=== PATIENT | female | born 2000 | race American Indian/Alaskan Native ===

== ENCOUNTER 2022-01-18 03:59 | Emergency (ER) | payer SELFPAY ==
[2022-01-18 05:03] VITALS: BP 118/84
[2022-01-18 05:23] LABS: Hematocrit 47.4 % (30.3-42.9); Hemoglobin 15.5 gm/dl (10.1-14.3); Mean Corpuscular HGB Conc 33 % (30-34); Mean Corpuscular Volume 89 fl (79-97); Platelet Count 386 K/mm3 (140-440); Red Blood Count 5.34 M/mm3 (3.65-5.03); Red Cell Distribution Width 13.1 % (13.2-15.2)
[2022-01-18 05:26] LABS: Bilirubin,Urine NEG (Negative); Blood,Urine LG (Negative); Color,Urine Red (Yellow); Mucus,Urine 3+ /HPF; Urobilinogen,Urine < 2.0 mg/dL (<2.0)
[2022-01-18 05:27] LABS: RBC,Urine > 182.0 /HPF (0.0-6.0)
[2022-01-18 05:49] LABS: Alanine Aminotransferase 23 units/L (7-56); Albumin 5.7 g/dL (3.9-5); BUN/Creatinine Ratio 18; Blood Urea Nitrogen 18 mg/dL (7-17); Calcium 10.3 mg/dL (8.4-10.2); Hemolysis Index 15
[2022-01-18 06:12] LABS: Total Cells Counted 100
[2022-01-18 06:13] LABS: Basophils % (Manual) 0 % (0.0-1.8); Eosinophils % (Manual) 0 % (0.0-4.3)
[2022-01-18 06:14] LABS: Platelet Estimate Consistent w Auto; RBC Morphology Normal
== END 2022-01-18 09:30 | disposition left against medical advice (07) ==
LOC: ED 03:59
DX: N93.9 Abnormal uterine and vaginal bleeding, unspecified (principal); Z53.21 Procedure and treatment not carried out due to patient leaving prior to being seen by health care provider
CPT/HCPCS: 36415; 80053; 81001; 84703; 85007; 85025

== ENCOUNTER 2022-01-18 11:04 | Emergency (ER) | payer MEDICAID ==
[2022-01-18] MEDS ORDERED: ONDANSETRON 4 MG/2 ML INJ IV ONE (13:31)
[2022-01-18] MEDS ORDERED: MORPHINE 4 MG/1 ML INJ IV ONE (13:31)
[2022-01-18 13:55] LABS: Basophils # (Auto) 0.1 K/mm3 (0.0-0.1); Basophils % (Auto) 0.6 % (0.0-1.8); Hematocrit 47.6 % (30.3-42.9); Hemoglobin 15.7 gm/dl (10.1-14.3); Lymphocytes # (Auto) 1.9 K/mm3 (1.2-5.4); Lymphocytes % (Auto) 14.1 % (13.4-35.0); Mean Corpuscular HGB Conc 33 % (30-34); Mean Corpuscular Volume 87 fl (79-97); Monocytes # (Auto) 1.2 K/mm3 (0.0-0.8); Monocytes % (Auto) 9.1 % (0.0-7.3); Platelet Count 408 K/mm3 (140-440); Red Blood Count 5.46 M/mm3 (3.65-5.03); Red Cell Distribution Width 12.8 % (13.2-15.2)
[2022-01-18 14:31] LABS: Alanine Aminotransferase 21 units/L (7-56); Albumin 5.9 g/dL (3.9-5); BUN/Creatinine Ratio 17; Blood Urea Nitrogen 17 mg/dL (7-17); Calcium 10.4 mg/dL (8.4-10.2)
[2022-01-18 14:32] LABS: Hemolysis Index 8
[2022-01-18] MEDS ORDERED: SODIUM CHLORIDE 0.9% 1000 ML 1,000 ML IV ONE (16:10)
--- NOTE | 2022-01-18 17:05 | Cat Scan Report ---
CT ABDOMEN AND PELVIS WITH CONTRAST INDICATION / CLINICAL INFORMATION: pelvic pain and lower abd pain; with light vaginal bleeding; 9 day s late on menstrual cycle 100 ML OMNI 300. TECHNIQUE: Axial CT images were obtained through the abdomen and pelvis after 100 cc Omnipaque [address] scans at this location are performed using CT dose reduction for ALARA by means of automated exposure control. COMPARISON: None available. FINDINGS: LOWER CHEST: No acute abnormality. LIVER: No significant abnormality. GALLBLADDER: No significant abnormality. BILE DUCTS: No significant abnormality. PANCREAS: No significant abnormality. SPLEEN: No significant abnormality. ADRENALS: No significant abnormality. RIGHT KIDNEY / URETER: No significant abnormality. LEFT KIDNEY / URETER: No significant abnormality. STOMACH / SMALL BOWEL: No significant abnormality. COLON: No significant abnormality. APPENDIX: No significant abnormality. PERITONEUM: No free fluid. No free air. No fluid collection. LYMPH NODES: No significant adenopathy. AORTA / ARTERIES: No significant abnormality. IVC / VEINS: No significant abnormality. URINARY BLADDER: No significant abnormality. REPRODUCTIVE ORGANS: No significant abnormality. ADDITIONAL FINDINGS: None. SKELETAL SYSTEM: No significant abnormality. IMPRESSION: 1. No acute abnormality. There is no obstruction, inflammation, or free air. There are no abnormal fl uid collections. Signer Name: Ralf Olsen MD Signed: 01/18/2022 5:01 PM Workstation Name: [id number]
--- NOTE | 2022-01-18 18:36 | Emergency Department Report ---
ED Abdominal Pain HPI - General Chief Complaint: Abdominal Pain Stated Complaint: VOMMITING X3 DAYS POSS MISCARRIAGE Time Seen by Provider: 01/18/22 13:25 Source: patient Mode of arrival: Ambulatory Limitations: No Limitations - History of Present Illness Initial Comments: Patient presents with complaints of middle, upper abdominal pain, sharp/cramping, non radiating, 8/10, not worsened or relieved by anything. Endorses nausea, non bloody, non bilious vomiting. Last BM was today and diarrheal. Has had diarrhea x 1 day (2 bouts) without blood or mucus. Denies recent travel, eating out, known sick contacts. Endorses flatulence. Denies dysuria, frequency, urgency. Reports vaginal bleeding, denies vaginal discharge. Severity scale (0 -10): 10 - Related Data Previous Rx's Medication Instructions Recorded Last Taken Type Acetaminophen/Codeine [Tylenol 1 tab PO Q6H PRN 3 Days #12 tab 01/18/22 Unknown Rx /Codeine # 3 tab] Ondansetron [Zofran ODT TAB] 1 tab SL Q8HR PRN 3 Days #9 01/18/22 Unknown Rx tab.rapdis Allergies Allergy/AdvReac Type Severity Reaction Status Date / Time No Known Allergies Allergy Verified 01/18/22 04:48 ED Review of Systems ROS: Stated complaint: VOMMITING X3 DAYS POSS MISCARRIAGE Other details as noted in HPI Comment: All other systems reviewed and negative Constitutional: denies: chills, fever ED Past Medical Hx - Past Medical History Previous Medical History?: No - Surgical History Additional Surgical History: tonsillectomy - Social History Smoking Status: Never Smoker Substance Use Type: None - Medications Home Medications: Home Medications Medication Instructions Recorded Confirmed Last Taken Type Acetaminophen/Codeine [Tylenol 1 tab PO Q6H PRN 3 Days #12 tab 01/18/22 Unknown Rx /Codeine # 3 tab] Ondansetron [Zofran ODT TAB] 1 tab SL Q8HR PRN 3 Days #9 01/18/22 Unknown Rx tab.rapdis ED Physical Exam - General Limitations: No Limitations General appearance: alert, in no apparent distress - Head Head exam: Present: atraumatic, normocephalic - Eye Eye exam: Present: PERRL, EOMI - ENT ENT exam: Present: mucous membranes moist, other (airway patent) - Neck Neck exam: Present: other (supple; no JVD) - Cardiovascular Cardiovascular Exam: Present: regular rate. Absent: rubs, gallop - GI/Abdominal GI/Abdominal exam: Present: other (soft; non distended; mildly tender to palpation diffusely) - Extremities Exam Extremities exam: Present: full ROM. Absent: tenderness - Back Exam Back exam: Present: full ROM. Absent: CVA tenderness (R), CVA tenderness (L) - Neurological Exam Neurological exam: Present: alert, oriented X3, CN II-XII intact. Absent: motor sensory deficit - Skin Skin exam: Present: warm, normal color ED Course Vital Signs 01/18/22 01/18/22 01/18/22 11:28 17:10 17:14 Temperature 98.5 F 98.9 F Pulse Rate 66 83 Respiratory 16 20 Rate Blood Pressure 118/84 116/89 [Right] O2 Sat by Pulse 99 99 100 Oximetry 01/18/22 19:42 Temperature 99.0 F Pulse Rate 76 Respiratory 20 Rate Blood Pressure 124/78 [Right] O2 Sat by Pulse 100 Oximetry ED Medical Decision Making - Lab Data Result diagrams: 01/18/22 13:35 01/18/22 13:35 Laboratory Tests 01/18/22 01/18/22 01/18/22 13:35 13:35 13:35 WBC 13.3 H RBC 5.46 H Hgb 15.7 H Hct 47.6 H MCV 87 MCH 29 MCHC 33 RDW 12.8 L Plt Count 408 Lymph % (Auto) 14.1 Kingfisher % (Auto) 9.1 H Eos % (Auto) 0.0 Baso % (Auto) 0.6 Lymph # (Auto) 1.9 Kingfisher # (Auto) 1.2 H Eos # (Auto) 0.0 Baso # (Auto) 0.1 Seg Neutrophils % 76.2 H Seg Neutrophils # 10.1 H Sodium 136 L Potassium 3.6 Chloride 95.2 L Carbon Dioxide 25 Anion Gap 19 BUN 17 Creatinine 1.0 Estimated GFR > 60 BUN/Creatinine Ratio 17 Glucose 103 H Calcium 10.4 H Total Bilirubin 0.60 AST 18 ALT 21 Alkaline Phosphatase 78 Total Protein 8.6 H Albumin 5.9 H Albumin/Globulin Ratio 2.2 Lipase 33 HCG, Qual Negative CT abd/pelvis: no acute intraabdominal process - Medical Decision Making Likely 2/2 gastroenteritis superimposed on dysmenorrhea. Ectopic , appendicitis, pancreatitis, biliary disease, SBO and other acute surgical ab domen ruled out @ this time. UTI unlikely. Received morphine 4 mg IV x 1, zofran 4 mg IV x 1, NS 1L bolus IV x 1. Critical care attestation.: If time is entered above; I have spent that time in minutes in the direct care of this critically ill patient, excluding procedure time. ED Disposition Clinical Impression: Abdominal pain Disposition: HOME / SELF CARE / HOMELESS Is pt being admited?: No Does the pt Need Aspirin: No Condition: Stable Instructions: Abdominal Pain, Adult, [id number], Abdominal Pain (ED) Additional Instructions: Follow up with your regular doctor within 2-4 days. Return to the ER if your symptoms worsen. Get tested for COVID-19 at one of the outpatient testing centers. Prescriptions: Acetaminophen/Codeine [Tylenol /Codeine # 3 tab] 1 tab PO Q6H PRN 3 Days #12 tab PRN Reason: Pain , Severe (7-10) Ondansetron [Zofran ODT TAB] 1 tab SL Q8HR PRN 3 Days #9 tab.rapdis PRN Reason: Nausea And Vomiting Referrals: PRIMARY CARE, [Primary Care Provider] - 3-5 Days Time of Disposition: 18:30 ([id number] consulted prior to Rx)
[2022-01-18 19:43] VITALS: BP 124/78
== END 2022-01-18 19:42 | disposition home or self-care (01) ==
LOC: ED 11:04
DX: O26.899 Other specified pregnancy related conditions, unspecified trimester (principal); R10.9 Unspecified abdominal pain; Z3A.00 Weeks of gestation of pregnancy not specified
CPT/HCPCS: 36415; 74177; 80053; 83690; 84703; 85025; 96361; 96374; 96375; 99284; J2270; J2405; J7030; Q9967

== ENCOUNTER 2022-01-23 08:58 | Emergency (ER) | payer MEDICAID ==
--- NOTE | 2022-01-23 11:44 | Emergency Department Report ---
ED Abdominal Pain HPI - General Chief Complaint: Abdominal Pain Stated Complaint: ABD PAIN/VOMITING Time Seen by Provider: 01/23/22 11:28 Source: patient Mode of arrival: Ambulatory Limitations: No Limitations - History of Present Illness Initial Comments: 22-year-old black female with no past medical history presents to the emergency department for evaluation of several day history of nausea vomiting. She states that she was seen on for same, and per her previous visit notes, she had a normal CAT scan with a normal CBC and BMP. She states that she was discharged with Tylenol 3 and Zofran, but she has been unable to locate her Zofran prescription so she has still been having some intermittent nausea vomiting but only after eating. She states that she has vomited 3 times this morning after drinking a Gatorade. She states that she is also having some intermittent abdominal cramping only when she vomits. She denies fever, dysuria, and vaginal discharge. MD Complaint: abdominal pain -: Gradual, days(s) Location: epigastric (Several) Radiation: none Migration to: no migration Severity scale (0 -10): 8 Quality: burning Consistency: intermittent Worsens With: vomiting Associated Symptoms: nausea, vomiting. denies: diarrhea, fever, chills, dysuria, hematemesis, hematochezia, melena, hematuria, anorexia, syncope - Related Data LMP (females 10-50): this week Previous Rx's Medication Instructions Recorded Last Taken Type Acetaminophen/Codeine [Tylenol 1 tab PO Q6H PRN 3 Days #12 tab 01/18/22 Unknown Rx /Codeine # 3 tab] Ondansetron [Zofran ODT TAB] 1 tab SL Q8HR PRN 3 Days #9 01/18/22 Unknown Rx tab.rapdis Famotidine [Pepcid] 40 mg PO QHS #15 tab 01/23/22 Unknown Rx Ondansetron [Zofran Odt] 4 mg PO Q8HR PRN #12 tab.rapdis 01/23/22 Unknown Rx Allergies Allergy/AdvReac Type Severity Reaction Status Date / Time No Known Allergies Allergy Verified 01/18/22 04:48 ED Review of Systems ROS: Stated complaint: ABD PAIN/VOMITING Other details as noted in HPI Comment: All other systems reviewed and negative Constitutional: denies: chills, fever, malaise, weakness Eyes: denies: eye pain, eye discharge ENT: denies: congestion Respiratory: denies: cough, orthopnea, shortness of breath, SOB with exertion, SOB at rest, stridor Cardiovascular: denies: chest pain, palpitations, dyspnea on exertion, orthopnea, edema, syncope, paroxysmal nocturnal dyspnea Gastrointestinal: abdominal pain, nausea, vomiting. denies: diarrhea, hematemesis, melena, hematochezia Genitourinary: denies: urgency, dysuria, frequency, hematuria, discharge Skin: denies: rash, lesions Neurological: denies: headache, weakness, numbness, paresthesias, confusion, abnormal gait Psychiatric: denies: anxiety, depression ED Past Medical Hx - Surgical History Additional Surgical History: tonsillectomy - Social History Smoking Status: Never Smoker Substance Use Type: None - Medications Home Medications: Home Medications Medication Instructions Recorded Confirmed Last Taken Type Acetaminophen/Codeine [Tylenol 1 tab PO Q6H PRN 3 Days #12 tab 01/18/22 Unknown Rx /Codeine # 3 tab] Ondansetron [Zofran ODT TAB] 1 tab SL Q8HR PRN 3 Days #9 01/18/22 Unknown Rx tab.rapdis Famotidine [Pepcid] 40 mg PO QHS #15 tab 01/23/22 Unknown Rx Ondansetron [Zofran Odt] 4 mg PO Q8HR PRN #12 tab.rapdis 01/23/22 Unknown Rx ED Physical Exam - General Limitations: No Limitations General appearance: alert, in no apparent distress - Head Head exam: Present: atraumatic, normocephalic - Eye Eye exam: Present: normal appearance. Absent: conjunctival injection - ENT ENT exam: Present: normal exam, mucous membranes moist - Neck Neck exam: Present: normal inspection, full ROM. Absent: tenderness, lymphadenopathy - Respiratory Respiratory exam: Present: normal lung sounds bilaterally, chest wall tenderness. Absent: respiratory distress, wheezes, rales, rhonchi, stridor - Cardiovascular Cardiovascular Exam: Present: tachycardia, normal heart sounds - GI/Abdominal GI/Abdominal exam: Present: soft, normal bowel sounds. Absent: distended, tenderness, guarding, rebound, rigid - Extremities Exam Extremities exam: Present: normal inspection, normal capillary refill. Absent: full ROM, pedal edema, joint swelling, calf tenderness - Back Exam Back exam: Present: normal inspection. Absent: CVA tenderness (R), CVA tenderness (L), vertebral tenderness - Neurological Exam Neurological exam: Present: alert, oriented X3, normal gait - Psychiatric Psychiatric exam: Present: normal affect, normal mood - Skin Skin exam: Present: warm, dry, intact, normal color ED Course Vital Signs 01/23/22 01/23/22 09:37 12:52 Temperature 98.4 F 98.2 F Pulse Rate 102 H 72 Respiratory 18 18 Rate Blood Pressure 139/82 118/82 [Right] O2 Sat by Pulse 99 98 Oximetry - Reevaluation(s) Reevaluation #1: 01/23/22 11:44 Patient refused IV. Reevaluation #2: 01/23/22 12:44 Patient given 1 cup of water and 2 cups of apple juice after taking Zofran, and she was able to keep all liquids down and denies any nausea or vomiting at this time. She states that she cannot locate her prescription for Zofran on her previous visit therefore she was not able to take it at home. Patient states that she feels much better. ED Medical Decision Making - Medical Decision Making 22-year-old black female with no past medical history presents to the emergency department for evaluation of several day history of nausea vomiting. She states that she was seen on for same, and per her previous visit notes, she had a normal CAT scan with a normal CBC and BMP. She states that she was discharged with Tylenol 3 and Zofran, but she has been unable to locate her Zofran prescription so she has still been having some intermittent nausea vomiting but only after eating. She states that she has vomited 3 times this morning after drinking a Gatorade. She states that she is also having some intermittent abdominal cramping only when she vomits. She denies fever, dysuria, and vaginal discharge. Patient tolerated p.o. challenge after 1 dose of Zofran, she states that she feels much better. Patient will be discharged home with prescription for Zofran to use as needed for nausea along with Pepcid to take once daily. She is advised to drink plenty of noncaffeinated fluids over the next day or 2. She states that she already has a follow-up appointment with her primary care provider in a couple weeks and is encouraged to keep that appointment. She is advised to follow-up in the emergency department for any concerning symptoms. She verbalizes understanding of and agreement with plan of care. Critical care attestation.: If time is entered above; I have spent that time in minutes in the direct care of this critically ill patient, excluding procedure time. ED Disposition Clinical Impression: Nausea & vomiting Qualifiers: Vomiting type: unspecified Qualified Code(s): R11.2 - Nausea with vomiting, unspecified Disposition: HOME / SELF CARE / HOMELESS Is pt being admited?: No Does the pt Need Aspirin: No Condition: Stable Instructions: Nausea and Vomiting, Adult, [id number], [place] Diet, Abdominal Pain (ED) Additional Instructions: Eat a bland diet over the next day then advance diet as tolerated. Use Zofran as needed for nausea and vomiting. Take Pepcid daily. Follow-up with primary care provider as planned. Return to the emergency department as needed. Prescriptions: Famotidine [Pepcid] 40 mg PO QHS #15 tab Ondansetron [Zofran Odt] 4 mg PO Q8HR PRN #12 tab.rapdis PRN Reason: Nausea And Vomiting Referrals: JENNA HARTLEY MD [Primary Care Provider] - 3-5 Days Forms: Work/School Release Form(ED) Time of Disposition: 12:47
[2022-01-23] MEDS: ONDANSETRON 4 MG ODT TAB PO ONE (11:49)
[2022-01-23] MEDS: FAMOTIDINE 20 MG TAB PO ONE (11:49)
[2022-01-23 12:53] VITALS: BP 118/82
== END 2022-01-23 12:53 | disposition home or self-care (01) ==
LOC: ED 08:58
DX: R11.2 Nausea with vomiting, unspecified (principal)
CPT/HCPCS: 99282; J3490; Q0162

== ENCOUNTER 2022-03-05 10:21 | Emergency (ER) | payer MEDICAID ==
[2022-03-05 10:28] VITALS: BP 159/78
[2022-03-05] MEDS ORDERED: SODIUM CHLORIDE 0.9% 1000 ML 1,000 ML IV ONE (10:39)
[2022-03-05] MEDS ORDERED: FAMOTIDINE 20 MG/2 ML INJ IV ONE (10:39)
[2022-03-05] MEDS ORDERED: METOCLOPRAMIDE 10 MG/2 ML INJ IV ONE (10:40)
[2022-03-05] MEDS ORDERED: diphenhydrAMINE 50 MG/ML VIAL IV ONE (10:40)
--- NOTE | 2022-03-05 10:45 | Emergency Department Report ---
ED N/V/D HPI - General Chief complaint: Nausea/Vomiting/Diarrhea Stated complaint: VOMITING Source: patient Mode of arrival: Ambulatory Limitations: No Limitations - History of Present Illness Initial comments: Patient is a A0 22-year-old -Lao female with no past medical history who presents to the ED with complaint of acute onset persistent intractable nausea and vomiting with diarrhea and diffuse lower abdominal pain for the last 3 days. Patient states that she has not been able to keep anything down in the last 3 days because of intractable nausea and vomiting and diarrhea. Patient states that her LMP was January 18, 2022. Patient denies dizziness, synco pe, headache, chest pain or shortness of breath, vaginal bleeding, vaginal discharge, dysuria, urinary frequency and urgency, low back pain, fever and chills, cough, sore throat or lightheadedness. MD complaint: nausea, vomiting, diarrhea, abdominal pain (diffuse lower abdom inal pain) -: days(s) (3) Description of Vomiting: food contents, watery, bilious Description of Diarrhea: water Associated Abdominal Pain: Yes (Diffuse lower abdominal pain) Location: LLQ, RLQ Radiation: none Severity: severe Pain Scale: 7 Quality: cramping, aching Consistency: intermittent Improves with: none Worsens with: eating, vomiting Context: possible food poisoning, other (Possible ) Associated Symptoms: denies other symptoms, nausea/vomiting. denies: myalgias, chest pain, cough, diaphoresis, fever/chills, headaches, loss of appetite, malaise, rash, dysuria, shortness of breath, syncope, weakness, other - Related Data Previous Rx's Medication Instructions Recorded Last Taken Type Acetaminophen/Codeine [Tylenol 1 tab PO Q6H PRN 3 Days #12 tab 01/18/22 Unknown Rx /Codeine # 3 tab] Ondansetron [Zofran ODT TAB] 1 tab SL Q8HR PRN 3 Days #9 01/18/22 Unknown Rx tab.rapdis Famotidine [Pepcid] 40 mg PO QHS #15 tab 01/23/22 Unknown Rx Ondansetron [Zofran Odt] 4 mg PO Q8HR PRN #12 tab.rapdis 01/23/22 Unknown Rx Acetaminophen [Tylenol] 500 mg PO Q6HR PRN #40 tablet 03/05/22 Unknown Rx Promethazine HCl [Phenergan SUPPOS] 25 mg RC Q8H PRN #20 cap 03/05/22 Unknown Rx Promethazine [Phenergan] 25 mg PO Q6HR PRN #30 tab 03/05/22 Unknown Rx Allergies Allergy/AdvReac Type Severity Reaction Status Date / Time No Known Allergies Allergy Verified 01/18/22 04:48 ED Review of Systems ROS: Stated complaint: VOMITING Other details as noted in HPI Constitutional: denies: chills, fever Eyes: denies: eye pain, eye discharge, vision change ENT: denies: ear pain, throat pain Respiratory: denies: cough, shortness of breath, wheezing Cardiovascular: denies: chest pain, palpitations Endocrine: no symptoms reported Gastrointestinal: abdominal pain (diffuse lower), nausea, vomiting, diarrhea. denies: constipation, hematemesis, melena Genitourinary: denies: urgency, dysuria, discharge Musculoskeletal: denies: back pain, joint swelling, arthralgia Skin: denies: rash, lesions Neurological: denies: headache, weakness, paresthesias Psychiatric: denies: anxiety, depression Hematological/Lymphatic: denies: easy bleeding, easy bruising ED Past Medical Hx - Past Medical History Additional medical history: Vaginal delivery - Surgical History Past Surgical History?: No Additional Surgical History: tonsillectomy - Social History Smoking Status: Never Smoker Substance Use Type: None - Medications Home Medications: Home Medications Medication Instructions Recorded Confirmed Last Taken Type Acetaminophen/Codeine [Tylenol 1 tab PO Q6H PRN 3 Days #12 tab 01/18/22 Unknown Rx /Codeine # 3 tab] Ondansetron [Zofran ODT TAB] 1 tab SL Q8HR PRN 3 Days #9 01/18/22 Unknown Rx tab.rapdis Famotidine [Pepcid] 40 mg PO QHS #15 tab 01/23/22 Unknown Rx Ondansetron [Zofran Odt] 4 mg PO Q8HR PRN #12 tab.rapdis 01/23/22 Unknown Rx Acetaminophen [Tylenol] 500 mg PO Q6HR PRN #40 tablet 03/05/22 Unknown Rx Promethazine HCl [Phenergan SUPPOS] 25 mg RC Q8H PRN #20 cap 03/05/22 Unknown Rx Promethazine [Phenergan] 25 mg PO Q6HR PRN #30 tab 03/05/22 Unknown Rx ED Physical Exam - General Limitations: No Limitations General appearance: alert, in no apparent distress - Head Head exam: Present: atraumatic, normocephalic, normal inspection - Eye Eye exam: Present: normal appearance, PERRL, EOMI Pupils: Present: normal accommodation - ENT ENT exam: Present: normal exam, normal orophraynx, mucous membranes moist, TM's normal bilaterally, normal external ear exam - Neck Neck exam: Present: normal inspection, full ROM. Absent: tenderness - Respiratory Respiratory exam: Present: normal lung sounds bilaterally. Absent: respiratory distress, wheezes, rales, rhonchi, chest wall tenderness, accessory muscle use, decreased breath sounds, prolonged expiratory - Cardiovascular Cardiovascular Exam: Present: regular rate, normal rhythm, normal heart sounds. Absent: systolic murmur, diastolic murmur, rubs, gallop - GI/Abdominal GI/Abdominal exam: Present: soft, tenderness (Palpable diffuse lower abdominal t enderness), normal bowel sounds. Absent: guarding, rebound, hyperactive bowel sounds, hypoactive bowel sounds, organomegaly, bruit - Bi-manual exam: Present: other (Pelvic exam deferred at this time) - Extremities Exam Extremities exam: Present: normal inspection, full ROM, normal capillary refill - Back Exam Back exam: Present: normal inspection, full ROM. Absent: tenderness, CVA tenderness (R), CVA tenderness (L), muscle spasm, paraspinal tenderness, vertebral tenderness - Neurological Exam Neurological exam: Present: alert, oriented X3, CN II-XII intact, normal gait, reflexes normal - Psychiatric Psychiatric exam: Present: normal affect, normal mood - Skin Skin exam: Present: warm, dry, intact, normal color. Absent: rash ED Course Vital Signs 03/05/22 10:26 Temperature 98.7 F Pulse Rate 95 H Respiratory 20 Rate Blood Pressure 159/78 [Right] O2 Sat by Pulse 100 Oximetry ED Medical Decision Making - Lab Data Result diagrams: 03/05/22 10:59 03/05/22 10:59 - Radiology Data Radiology results: report reviewed, image reviewed [facility] [address] [place] [address] Ultrasound Report Signed Patient: MAXWELL PATRICIO MR #: [id number] : 2000 Acct:[id number] Age/Sex: 22 / F ADM Date: 03/05/22 Loc: ED Attending Dr: Ordering Physician: JUDAH MEZA Date of Service: 03/05/22 Procedure(s): US OB <= 14 weeks fetus Accession Number(s): [id number] cc: JUDAH MEZA US OB transvaginal, US OB <= 14 weeks fetus INDICATION / CLINICAL INFORMATION: Pelvic pain. COMPARISON: None available. FINDINGS: Transabdominal and transvaginal imaging was performed. Twin A mean sac diameter is 0.97 cm, 5 weeks 5 days. No pole is identified at this time. Twin B mean sac diameter is 0.91 cm, 5 weeks 5 days. pole is observed. Maternal ovaries are not visualized. No free fluid is seen. IMPRESSION: 1. Intrauterine twin . Gestational age by mean sac diameter, as above. Twin B pole is identified. No definite pole is seen within the twin A gestational sac. Correlation with serial beta hCG levels and short-term sonographic follow-up is recommended. Signer Name: Peter Morfin MD Signed: 03/05/2022 1:45 PM Workstation Name: [id number] Transcribed By: SW Dictated By: Peter Morfin MD Electronically Authenticated By: Peter Morfin MD Signed Date/Time: 03/05/22 134 DD/ 134 TD/TT: - Medical Decision Making This is a A0 22-year-old -[place] female with no past medical history who presents to the ED with complaint of acute onset persistent in tractable nausea and vomiting with diarrhea and diffuse lower abdominal pain for the last 3 days. Patient states that she has not been able to keep anything down in the last 3 days because of intractable nausea and vomiting and diarrhea. Patient states that her LMP was January 18, 2022. In the ED, patient is alert and oriented x3 and is not in any distress. Patient is hemodynamically stable. Patient was treated for nausea and vomiting, also given normal saline 1 L IV bolus and antacids. Transvaginal ultrasound showed intrauterine twin . Gestational age by mean sac diameter, measures 5 weeks and 5 days but no heart tones identified at this time. All lab test results were reviewed and are all nonactionable. On reevaluation, patient's pain is well controlled medication. Patient will discharge home on pain medications, Tylenol and antiemetics and advised to follow-up with her [employer] physician in 5 to 7 days for reevaluation or return to the ED immediately if symptoms get worse. - Differential Diagnosis ; hyperemesis; gastroenteritis; UTI; dehydration; GERD Critical care attestation.: If time is entered above; I have spent that time in minutes in the direct care of this critically ill patient, excluding procedure time. ED Disposition Clinical Impression: Abdominal pain during in first trimester, Hyperemesis gravidarum, Nausea and vomiting during prior to 22 weeks gestation Disposition: HOME / SELF CARE / HOMELESS Is pt being admited?: No Does the pt Need Aspirin: No Condition: Stable Instructions: Hyperemesis Gravidarum, Nausea and Vomiting, Adult, [id number], Abdominal Pain During , [id number], Morning Sickness, [id number] Additional Instructions: All lab test results were reviewed and are all nonactionable. Transvaginal ultrasound showed intrauterine twin of approximately 5 weeks 5 days but no heart tones was identified at this time. Therefore maintain a clear complete pelvic rest with no strenuous physical activities. Follow-up with your [employer] physician in 5 to 7 days for reevaluation or return to the ED immediately if symptoms get worse. Prescriptions: Acetaminophen [Tylenol] 500 mg PO Q6HR PRN #40 tablet PRN Reason: Pain , Severe (7-10) Promethazine [Phenergan] 25 mg PO Q6HR PRN #30 tab PRN Reason: Nausea Promethazine HCl [Phenergan SUPPOS] 25 mg RC Q8H PRN #20 cap PRN Reason: Nausea Referrals: FLO PANCHAL MD [Staff Physician] - 3-5 Days Forms: Work/School Release Form(ED) Time of Disposition: 14:51 Print Language: LUXEMBOURGISH
[2022-03-05 11:35] LABS: Alanine Aminotransferase 15 units/L (7-56); Albumin 5.3 g/dL (3.9-5); Blood Urea Nitrogen 14 mg/dL (7-17); Calcium 9.7 mg/dL (8.4-10.2); Hemolysis Index 7
[2022-03-05 11:39] LABS: BUN/Creatinine Ratio 20
[2022-03-05 11:42] LABS: Mucus,Urine 3+ /HPF
[2022-03-05 11:47] LABS: Bilirubin,Urine Negative (Negative); Color,Urine Yellow (Yellow)
[2022-03-05 11:48] LABS: Blood,Urine Negative (Negative); Urobilinogen,Urine < 2.0 mg/dL (<2.0)
[2022-03-05 12:06] LABS: Hematocrit 43.2 % (30.3-42.9); Hemoglobin 13.6 gm/dl (10.1-14.3); Mean Corpuscular HGB Conc 32 % (30-34); Mean Corpuscular Volume 89 fl (79-97); Platelet Count 415 K/mm3 (140-440); Red Blood Count 4.85 M/mm3 (3.65-5.03); Red Cell Distribution Width 13.2 % (13.2-15.2)
[2022-03-05 13:02] LABS: Total Cells Counted 100
[2022-03-05 13:03] LABS: Basophils % (Manual) 0 % (0.0-1.8); Eosinophils % (Manual) 0 % (0.0-4.3); Platelet Estimate Consistent w Auto; RBC Morphology Normal
[2022-03-05] MEDS ORDERED: MORPHINE 4 MG/1 ML INJ IV ONE (13:33)
[2022-03-05] MEDS ORDERED: ONDANSETRON 4 MG/2 ML INJ IV ONE (13:33)
--- NOTE | 2022-03-05 13:49 | Ultrasound Report ---
US OB transvaginal, US OB <= 14 weeks fetus INDICATION / CLINICAL INFORMATION: Pelvic pain. COMPARISON: None available. FINDINGS: Transabdominal and transvaginal imaging was performed. Twin A mean sac diameter is 0.97 cm, 5 weeks 5 days. No pole is identified at this time. Twin B mean sac diameter is 0.91 cm, 5 weeks 5 days. pole is observed. Maternal ovaries are not visualized. No free fluid is seen. IMPRESSION: 1. Intrauterine twin . Gestational age by mean sac diameter, as above. Twin B pole is identified. No definite pole is seen within the twin A gestational sac. Correlation with serial beta hCG levels and short-term sonographic follow-up is recommended. Signer Name: Peter Morfin MD Signed: 03/05/2022 1:45 PM Workstation Name: [id number]
== END 2022-03-05 15:40 | disposition home or self-care (01) ==
LOC: ED 10:21
DX: O21.0 Mild hyperemesis gravidarum (principal); O21.8 Other vomiting complicating pregnancy; O26.891 Other specified pregnancy related conditions, first trimester; Z3A.01 Less than 8 weeks gestation of pregnancy; Z98.890 Other specified postprocedural states
CPT/HCPCS: 36415; 76801; 76802; 76817; 80053; 81001; 83690; 84702; 85007; 85025; 96361; 96374; 96375; 99284; J1200; J2270; J2405; J2765; J3490; J7030

== ENCOUNTER 2022-03-08 11:36 | Emergency (ER) | payer MEDICAID | END 2022-03-08 19:16 | disposition left against medical advice (07) | LOC: ED 11:36 | DX: R11.10 Vomiting, unspecified (principal); Z53.21 Procedure and treatment not carried out due to patient leaving prior to being seen by health care provider ==

== ENCOUNTER 2022-03-09 10:34 | Emergency (ER) | payer MEDICAID ==
[2022-03-09 12:01] VITALS: BP 119/47
--- NOTE | 2022-03-09 12:45 | Event Note ---
ED Screening Note ED Screening Note: HERE AGAIN WITH N/V WITH HER PREG SHE SAW HER OBGYN AND WAS TOLD SHE'D NEED PICC LINE BUT THEY NEVER DID IT BC OF INSURANCE This initial assessment/diagnostic orders/clinical plan/treatment(s) is/are subject to change based on patients health status, clinical progression and re- assessment by fellow clinical providers in the ED. Further treatment and workup at subsequent clinical providers discretion. Patient/guardian urged not to elope from the ED as their condition may be serious if not clinically assessed and managed. Initial orders include: LABS HYDRATION
== END 2022-03-09 19:15 ==
LOC: ED 10:34
DX: R11.10 Vomiting, unspecified (principal); R53.1 Weakness; Z53.21 Procedure and treatment not carried out due to patient leaving prior to being seen by health care provider

== ENCOUNTER 2022-03-10 12:08 | Emergency (ER) | payer MEDICAID ==
[2022-03-10 12:58] VITALS: BP 113/72
== END 2022-03-11 10:17 | disposition left against medical advice (07) ==
LOC: ED 12:08
DX: O21.8 Other vomiting complicating pregnancy (principal); Z3A.01 Less than 8 weeks gestation of pregnancy; Z53.21 Procedure and treatment not carried out due to patient leaving prior to being seen by health care provider